=== PATIENT | male | born 1985 | race African-American/Black ===

== ENCOUNTER 2023-10-17 20:10 | Emergency (ER) | payer OTHER, SELFPAY ==
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
[2023-10-17 20:14] VITALS: BP 116/67; PULSE 92; RESP 20; TEMP 37.3; O2SAT 99
--- NOTE | 2023-10-17 21:22 | PC.NURSE ---
no answer at triage
[2023-10-17 22:14] LABS: Basophils Percent Auto 0.2 % (0.2-1.2); Eosinophils Absolute Auto 0.1 K/mm3 (0-0.3); Hematocrit 35.6 % (42.0-52.0); Hemoglobin 11.7 g/dL (14.0-18.0); Immature Granulocyte Absolute 0.01 K/mm3 (0.00-0.031); Immature Granulocyte Percent A 0.2 % (0-0.5); Immature Platelet Fraction Pct 3.3 % (0.9-11.2); Lymphocytes Absolute Auto 1.18 K/mm3 (0.9-3.2); Lymphocytes Percent Auto 21.7 % (18.3-44.2); Mean Corpuscular HGB Conc 32.9 g/dl (32-36); Mean Corpuscular Hemoglobin 21.7 pg (26-34); Mean Platelet Volume 9.8 fl (7.4-10.4); Monocytes Absolute Auto 0.4 K/mm3 (0.1-0.6); Monocytes Percent Auto 7.2 % (2.6-8.5); Neutrophils Absolute Auto 3.7 K/mm3 (1.3-6.7); Neutrophils Percent Auto 68.7 % (45.5-73.1); Platelet Count Result 195 k/mm3 (150-375); Red Blood Count 5.39 M/mm3 (4.6-6.20); Red Cell Distribution Width 17.6 % (11.5-14.5); White Blood Count 5.4 K/mm3 (4.5-10.0)
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
[2023-10-17] MEDS: CYCLOBENZAPRINE HCL 10 MG TABLET PO (22:24)
[2023-10-17] MEDS: HYDROcodone/acetaminophen (*CRX) 5-325 MG TABLET 1 TAB PO (22:24)
[2023-10-17 22:25] LABS: Alanine Aminotransferase 12 U/L (6-50); Albumin Level 4.1 g/dL (3.5-5.1); Alkaline Phosphatase 108 U/L (38-126); Anion Gap 8 mmol/L (4-12); Aspartate Amino Transferase 21 U/L (17-59); Bilirubin,Total 1.6 mg/dL (0.2-1.3); Blood Urea Nitrogen 3 mg/dL (9-20); Calcium 9.1 mg/dL (8.4-10.2); Carbon Dioxide 30 mmol/L (22-30); Chloride 99 mmol/L (98-107); Estimated CRCL calculation 121 ml/min; Estimated Glomerular Filt Rate > 60; Glucose 100 mg/dL (65-110); Potassium 2.9 mmol/L (3.4-5.0); Sodium 137 mmol/L (137-145)
[2023-10-17 22:42] LABS: Anisocytosis 1+; Hypochromasia 1+; Platelet Estimate Decreased (Adequate); Poikilocytosis 1+; Schistocytes None Seen; Target Cells 1+
[2023-10-17] MEDS: POTASSIUM CHLORIDE 20 MEQ ER TABLET 40 MEQ PO (22:53)
[2023-10-17 22:56] LABS: Appearance Urine Clear (Clear); Bilirubin Urine Negative (Negative); Blood Urine Negative (Negative); Color Urine Yellow (Yellow); Glucose Urine UA Negative (Negative); Ketones Urine Negative (Negative); Leukocyte Esterase Ur Negative LEU/UL (Negative); Nitrate Urine Negative (Negative); Protein Urine Negative (Negative); Specific Grav Ur 1.003 (1.001-1.035)
[2023-10-17 22:59] LABS: Add Urine Microscopic? NO
[2023-10-17 23:02] VITALS: BP 111/64; PULSE 72; RESP 14; TEMP 37.2; O2SAT 96
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
== END 2023-10-18 04:51 | disposition home or self-care (01) ==
PROVIDERS: Emergency Provider Emergency Medicine; PCP Emergency Medicine
DX: S39.92XA Unspecified injury of lower back, initial encounter (principal); S49.91XA Unspecified injury of right shoulder and upper arm, initial encounter; V49.9XXA Car occupant (driver) (passenger) injured in unspecified traffic accident, initial encounter
CPT/HCPCS: 36415; 71260; 74177; 80053; 81003; 85025; 85055; 99284; A9270; Q9967

== ENCOUNTER 2024-02-04 19:45 | Emergency (ER) | payer MEDICAID, SELFPAY ==
[2024-02-04 20:03] VITALS: BP 114/64; PULSE 73; RESP 20; TEMP 36.2; O2SAT 98
[2024-02-04 20:56] LABS: Basophils Percent Auto 0.7 % (0.2-1.2); Eosinophils Absolute Auto 0.1 K/mm3 (0-0.3); Eosinophils Percent Auto 3.5 % (0-4.4); Hematocrit 34.8 % (42.0-52.0); Hemoglobin 11.5 g/dL (14.0-18.0); Lymphocytes Absolute Auto 0.58 K/mm3 (0.9-3.2); Lymphocytes Percent Auto 20.2 % (18.3-44.2); Mean Corpuscular Hemoglobin 22.3 pg (26-34); Mean Corpuscular Volume 67.4 fl (80-100); Mean Platelet Volume 9.7 fl (7.4-10.4); Monocytes Absolute Auto 0.2 K/mm3 (0.1-0.6); Monocytes Percent Auto 7.3 % (2.6-8.5); Neutrophils Percent Auto 68.3 % (45.5-73.1); Platelet Count Result 197 k/mm3 (150-375); Red Blood Count 5.16 M/mm3 (4.6-6.20); Red Cell Distribution Width 17.7 % (11.5-14.5); White Blood Count 2.9 K/mm3 (4.5-10.0)
[2024-02-04 21:06] LABS: Ethanol < 10 mg/dL (<10)
[2024-02-04 21:07] LABS: Alanine Aminotransferase 13 U/L (6-50); Albumin Level 4.3 g/dL (3.5-5.1); Alkaline Phosphatase 96 U/L (38-126); Anion Gap 5 mmol/L (4-12); Aspartate Amino Transferase 24 U/L (17-59); Bilirubin,Total 2.1 mg/dL (0.2-1.3); Blood Urea Nitrogen 6 mg/dL (9-20); Calcium 8.8 mg/dL (8.4-10.2); Carbon Dioxide 32 mmol/L (22-30); Chloride 100 mmol/L (98-107); Estimated CRCL calculation 104 ml/min; Estimated Glomerular Filt Rate > 60; Glucose 110 mg/dL (65-110); Potassium 3.5 mmol/L (3.4-5.0); Sodium 137 mmol/L (137-145)
[2024-02-04 21:12] LABS: Acetaminophen < 10 ug/mL (10-30); Salicylate < 1.0 mg/dL (2-20)
[2024-02-04 21:32] LABS: Influenza A QL RT-PCR Negative (Negative); Influenza B QL RT-PCR Negative (Negative); RSV RNA, RT-PCR Negative (Negative); SARS-CoV-2 RNA PCR Negative (Negative)
--- NOTE | 2024-02-04 21:48 | ED.GENADULT ---
HPI - General Adult General Chief complaint: Psychiatric Symptoms Stated complaint: behavioral health Time Seen by Provider: 02/04/24 20:47 History of Present Illness HPI narrative: Patient is a 38-year-old gentleman presents emergency department with chief complaint of behavioral issues. Patient reports he was at [facility] yesterday and was given new mental health prescriptions the patient states that he has been having thoughts of harming himself but does not have a specific plan. Related Data Allergies Allergy/AdvReac Type Severity Reaction Status Date / Time No Known Allergies Allergy Verified 02/04/24 20:03 Review of Systems Review of Systems: A 10 system review of systems was completed on the patient and is negative except for what is stated in the HPI. Nursing and ancillary documentation was reviewed. [facility] Social History Social History Substance use type: does not use Exam Narrative: GENERAL: Well-appearing, well-nourished, and in no acute distress. HEAD: Normocephalic, atraumatic. EYES: PERRLA and EOMI. ENT: Nares clear, no rhinorrhea or epistaxis. Mucous membranes moist. NECK: Supple. CHEST: Clear to auscultation. No respiratory distress. HEART: Regular rate and rhythm. No murmur heard. Normal peripheral pulses. ABDOMEN: Soft, nontender, nondistended, normal active bowel sounds. EXTREMITIES: Normal range of motion. No edema. SKIN: Warm, dry, no rash. NEURO: No focal deficits. Alert and oriented x3. PSYCH: Depressed affect Course Vital Signs Vital signs: Vital Signs Temperature 36.2 C L 02/04/24 20:03 Pulse Rate 73 02/04/24 20:03 Respiratory Rate 20 02/04/24 20:03 Blood Pressure 114/64 02/04/24 20:03 Pulse Oximetry 98 02/04/24 20:03 Oxygen Delivery Room Air 02/04/24 20:03 Temperature 36.2 C L 02/04/24 20:03 Pulse Rate 73 02/04/24 20:03 Respiratory Rate 20 02/04/24 20:03 Blood Pressure 114/64 02/04/24 20:03 Pulse Oximetry 98 02/04/24 20:03 Oxygen Delivery Room Air 02/04/24 20:03 Medical Decision Making [facility] Narrative Medical decision making narrative: Differential diagnosis includes substance induced mood disorder, intoxication, mental health crisis Laboratory studies were obtained on the patient showed white count of 2.9 hemoglobin was 11.5 electrolytes showed no acute abnormalities TSH was 0.309 urinalysis showed no evidence UTI salicylates and acetaminophen were negative tox screen was just positive for cannabinoids ETOH was negative COVID flu and RSV were negative Patient medically cleared for psychiatric evaluation referral transfer admission Patient was seen by crisis and agreed to a voluntary admission the patient was accepted by Dr. Platt at [facility] Vital Signs Vital Signs: Vital Signs Temperature 36.2 C L 02/04/24 20:03 Pulse Rate 73 02/04/24 20:03 Respiratory Rate 20 02/04/24 20:03 Blood Pressure 114/64 02/04/24 20:03 Pulse Oximetry 98 02/04/24 20:03 Oxygen Delivery Room Air 02/04/24 20:03 Temperature 36.2 C L 02/04/24 20:03 Pulse Rate 73 02/04/24 20:03 Respiratory Rate 20 02/04/24 20:03 Blood Pressure 114/64 02/04/24 20:03 Pulse Oximetry 98 02/04/24 20:03 Oxygen Delivery Room Air 02/04/24 20:03 Lab Data 02/04/24 20:50 02/04/24 20:50 Labs: Lab Results 02/04/24 02/04/24 02/04/24 Range/Units 20:40 20:50 21:57 WBC 2.9 L (4.5-10.0) K/mm3 RBC 5.16 (4.6-6.20) M/mm3 Hgb 11.5 L (14.0-18.0) g/dL Hct 34.8 L (42.0-52.0) % MCV 67.4 L (80-100) fl MCH 22.3 L (26-34) pg MCHC 33.0 (32-36) g/dl RDW 17.7 H (11.5-14.5) % Plt Count 197 (150-375) k/mm3 MPV 9.7 (7.4-10.4) fl Immature Gran % (Auto) 0.0 (0-0.5) % Neut % (Auto) 68.3 (45.5-73.1) % Lymph % (Auto) 20.2 (18.3-44.2) % Dawson % (Auto) 7.3 (2.6-8.5) % Eos % (Auto) 3.5 (0-4.4) % Baso % (Auto) 0.7 (0.2-1.2) % Lymph # (Auto) 0.58 L (0.9-3.2) K/mm3 Dawson # (Auto) 0.2 (0.1-0.6) K/mm3 Eos # (Auto) 0.1 (0-0.3) K/mm3 Baso # (Auto) 0.0 (0.0-0.1) K/mm3 Abs Immat Gran (auto) 0.00 (0.00-0.031) K/mm3 Absolute Neuts (auto) 2.0 (1.3-6.7) K/mm3 Absolute Nucleated RBC 0.000 (0.0-0.012) K/mm3 Nucleated RBC % 0.0 (0.0-0.2) % Sodium 137 (137-145) mmol/L Potassium 3.5 (3.4-5.0) mmol/L Chloride 100 (98-107) mmol/L Carbon Dioxide 32 H (22-30) mmol/L Anion Gap 5 (4-12) mmol/L BUN 6 L (9-20) mg/dL Creatinine 0.90 (0.7-1.3) mg/dL Estim Creat Clear Calc 104 ml/min Estimated GFR > 60 (59 - ) Glucose 110 (65-110) mg/dL Calcium 8.8 (8.4-10.2) mg/dL Total Bilirubin 2.1 H (0.2-1.3) mg/dL AST 24 (17-59) U/L ALT 13 (6-50) U/L Alkaline Phosphatase 96 (38-126) U/L Total Protein 8.0 (6.3-8.2) g/dL Albumin 4.3 (3.5-5.1) g/dL TSH (Reflex) 0.309 L (0.465-4.68) uIU/mL Free T4 1.27 (0.78-2.19) ng/dL Total T3 1.36 (0.97-1.69) NG/ML Urine Color Yellow (Yellow) Urine Appearance Clear (Clear) Urine pH 7.5 (5.0-9.0) Ur Specific [place] 1.012 (1.001-1.035) Urine Protein Negative (Negative) mg/dL Urine Glucose (UA) Negative (Negative) mg/dL Urine Ketones Negative (Negative) mg/dL Ur Blood (Man) Negative (Negative) Urine Nitrate Negative (Negative) Urine Bilirubin Negative (Negative) Urine Urobilinogen 2.0 H (<2.0) mg/dL Leukocyte Esterase Rfl Trace H (Negative) REBECA/UL Urine RBC 0-2 (0-2) /hpf Urine WBC 0-5 (0-3) /hpf Ur Squamous Epith Cells None seen (Few) /hpf Urine Bacteria None seen /hpf Urine Casts 0-2 Salicylates < 1.0 L (2-20) mg/dL Urine Opiates Screen Negative (Negative) Urine Methadone Screen Negative (Negative) Acetaminophen < 10 L (10-30) ug/mL Ur Barbiturates Screen Negative (Negative) Ur Phencyclidine Scrn Negative (Negative) Ur Amphetamine Screen Negative (Negative) U Benzodiazepines Scrn Negative (Negative) Urine Cocaine Screen Negative (Negative) U Cannabinoids Screen Positive A (Negative) Ethyl Alcohol < 10 (<10) mg/dL Influenza A (RT-PCR) Negative (Negative) Influenza B (RT-PCR) Negative (Negative) RSV (RT-PCR) Negative (Negative) SARS-CoV-2 RNA (RT-PCR) Negative (Negative) Discharge Plan Discharge Clinical Impression: Suicidal ideation Patient Disposition: Psychiatric Hosp Condition: Stable Follow-up/Referrals: Julian Warren MD [Primary Care Provider] - Time of Disposition: 01:44
[2024-02-04 21:54] LABS: Thyroid Stimulating Hormone Reflex 0.309 uIU/mL (0.465-4.68)
[2024-02-04 22:07] LABS: Add Urine Microscopic? YES; Appearance Urine Clear (Clear); Bacteria Urine None Seen /hpf; Bilirubin Urine Negative (Negative); Blood Urine Negative (Negative); Color Urine Yellow (Yellow); Glucose Urine UA Negative (Negative); Ketones Urine Negative (Negative); Leukocyte Esterase Ur Trace LEU/UL (Negative); Nitrate Urine Negative (Negative); Non Pathogenic Casts 0-2; Protein Urine Negative (Negative); RBC Urine 0-2 /hpf (0-2); Specific Grav Ur 1.012 (1.001-1.035); Squamous Epithelial Cell Urine None Seen /hpf (Few); WBC Urine 0-5 /hpf (0-3); pH Urine 7.5 (5.0-9.0)
[2024-02-04 22:19] LABS: Free T4 Free Thyroxine Reflex 1.27 ng/dL (0.78-2.19)
[2024-02-04 22:20] LABS: Amphetamine Screen Urine Negative (Negative); Barbiturate Screen Urine Negative (Negative); Benzodiazepines Screen Urine Negative (Negative); Cannabinoid Screen Urine Positive (Negative); Cocaine Screen Urine Negative (Negative); Methadone Screen Urine Negative (Negative); Opiate Screen Urine Negative (Negative); Phencyclidine Screen Urine Negative (Negative)
[2024-02-04 22:59] LABS: Total Triiodothyronine (T3) 1.36 NG/ML (0.97-1.69)
--- NOTE | 2024-02-05 01:55 | PC.NURSE ---
Patient accepted to [facility] by Dr. Martinez. Awaiting report phone number.
[2024-02-05 02:44] VITALS: BP 118/60; PULSE 79; RESP 18; O2SAT 100
--- NOTE | 2024-02-05 02:44 | PC.NURSE ---
Patient accepted to [facility] by Dr. Martinez bed [id number].
== END 2024-02-05 04:12 ==
PROVIDERS: Emergency Provider Emergency Medicine; PCP Emergency Medicine
DX: R45.851 Suicidal ideations (principal); Z11.52 Encounter for screening for COVID-19
CPT/HCPCS: 36415; 80053; 80143; 80179; 80307; 81001; 82077; 84439; 84443; 84480; 85025; 87637; 99285